=== PATIENT | female | born 1940 | race Caucasian/White ===

== ENCOUNTER 2018-12-09 20:07 | Inpatient (IN) | payer MEDICARE ==
[~2018-12-09 20:07] MED LIST: ISOVUE-370 76%-LOCM 1 ML ONE
--- NOTE | 2018-12-09 22:42 | CT ---
CT ANGIOGRAM THORAX WITH IV CONTRAST AND 3D RECONSTRUCTIONS: 12/09/2018 HISTORY: Elevated D-dimer. COPD exacerbation. Patient diagnosed with influenza A. Diarrhea. COMPARISON: None available. FINDINGS: There are no filling defects seen in the pulmonary arteries to suggest a pulmonary embolus. Vascular calcifications are seen in the thoracic aorta, as well as involving the coronary arteries. There is also irregular atherosclerotic plaque seen circumferentially in the abdominal aorta. There is no evidence of a thoracic aortic aneurysm or dissection seen. There is prominent atherosclerotic plaque seen at the origin of the great vessels, with a question of moderate to severe narrowing at the origin of the left subclavian artery, although there is motion a rtifact, limiting adequate evaluation in this region. Mildly prominent hilar lymph nodes are seen bilaterally, which are nonspecific. There is an enlarged pretracheal lymph node noted, which measures 1.2 cm in short axis dimension, with a mildly prominent prevascular space lymph node, although this measures 0.9 cm in short axis dimension, which is not en larged by CT size criteria. There is a very tiny pericardial effusion versus pericardial thickening noted. There are emphysematous changes seen throughout the lungs bilaterally. There is a noncalcified pulmonary nodule seen in the right upper lobe, measuring 5 mm (image 54 serie s 3). There is a small, pleural-based, nodular density at the right lung base, which measures approx imately 5 mm as well. There is an irregular, patchy, parenchymal density seen within the right lower lobe (image 77, series 3), which may represent a focal area of pneumonitis or scarring, but a develo ping neoplastic process cannot be entirely excluded. Follow-up evaluation is recommended. This nodu lar area of parenchymal density measures approximately 9 mm. There is a tiny, pleural-based, nodular density in the region of the minor fissure, likely related to nodular pleural thickening. No discrete pulmonary nodule or mass is seen on the left. There is no pleural effusion identified. The visualized upper abdomen has a normal CT appearance, aside from atherosclerotic vascular calcific ations and plaque in the visualized proximal abdominal aorta. IMPRESSION: 1. Irregular parenchymal density, measuring approximately 9 mm, in the right lower lobe. This could be related to a focal area of scarring, but a developing area of pneumonitis is a possibility. Foll ow-up to resolution is recommended. An additional tiny pulmonary nodule is seen in the right upper l obe, with a nodular, pleural-based density at the right lung base. Follow-up examination in three to four months is recommended, to ensure resolution of the irregular parenchymal nodular density in the right lower lobe. 2. Atherosclerotic calcifications and plaque within the thoracic aorta, without aneurysmal dilatatio n or dissection seen. There is a question of narrowing involving the origin of the left subclavian a rtery, although there is motion artifact, limiting adequate evaluation. 3. Nonspecific mediastinal and hilar lymphadenopathy. This can be re-evaluated on follow-up examina tion of the nodular density in the right lower lobe in three to four months. 4. Emphysematous changes within the lungs bilaterally. CODE T POS: SONIDO
[2018-12-09] MEDS ORDERED: Oseltamivir 75 MG CAP PO SCH (23:59)
[2018-12-10 02:40] VITALS: BMI 21.9
[2018-12-10] MEDS ORDERED: Acetaminophen 325 MG TAB PO PRN ×2 (02:44→06:56)
[2018-12-10] MEDS ORDERED: Ondansetron ODT 4 MG TAB SL PRN (02:44)
[2018-12-10] MEDS ORDERED: Ondansetron PF 4 MG/2 ML Vial IVP PRN (02:44)
[2018-12-10] MEDS ORDERED: Loratadine 10 MG TAB PO PRN (06:56)
[2018-12-10] MEDS ORDERED: Artificial Tears 18 DROP/0.9 ML EA EYE PRN (06:56)
[2018-12-10] MEDS ORDERED: Calcium Carbonate 500 MG ChewTAB PO PRN (06:56)
[2018-12-10] MEDS ORDERED: Diabetic Tussin 200 MG/10 ML UDCUP PO PRN (06:56)
[2018-12-10] MEDS ORDERED: Senokot S 8.6-50 MG TAB PO PRN (06:56)
[2018-12-10] MEDS ORDERED: hydrALAZINE 20 MG/ML VIAL SLOW IVP PRN (06:56)
[2018-12-10] MEDS ORDERED: Metoclopramide HCl 10 MG TAB PO PRN (06:56)
[2018-12-10] MEDS ORDERED: Loperamide HCl 2 MG CAP PO PRN (06:56)
[2018-12-10] MEDS ORDERED: Eucerin (Mineral Oil/Petrolatum,White) 30 gm Jar TOP PRN (06:56)
[2018-12-10] MEDS ORDERED: Cepastat Lozenges 1 LOZ PO PRN (06:56)
[2018-12-10] MEDS ORDERED: Sodium Chloride 0.65% Nasal 44 ML BOT EA NARE PRN (06:56)
[2018-12-10] MEDS ORDERED: Bisacodyl 10 MG SUPP PR PRN (06:56)
[2018-12-10] MEDS: Enoxaparin Sodium 40 MG/0.4 ML SYRINGE SC SCH (07:34)
[2018-12-10] MEDS: Saccharomyces boulardii 250 MG CAP PO SCH (07:35)
[2018-12-10] MEDS: guaiFENesin ER 600 MG TAB PO SCH ×2 (07:35→20:56)
[2018-12-10] MEDS: Oseltamivir 75 MG CAP PO SCH ×2 (07:46→20:57)
[2018-12-10] MEDS ORDERED: Prevnar 13-Val Conj/PF 0.5 ML SYRINGE IM ONE (09:00)
--- NOTE | 2018-12-10 10:26 | HP ---
PRIMARY CARE PHYSICIAN: Hilary Saleh MD REASON FOR ADMISSION: Influenza A, bronchitis with COPD exacerbation. HISTORY OF PRESENT ILLNESS: An 78-year-old female, who has underlying history of COPD and ongoing tobacco abuse disorder, who presented to [facility] yesterday with complaint of increasing shortness of breath, cough productive of yellowish white sputum. She reports that for last 2 days, she was experiencing upper respiratory symptoms that was gradually gotten worse and her shortness of breath started getting worse. Subsequently, she was trying her home medication without any improvement. Her condition deteriorated in next day or 2 and that is why she decided to go to emergency room. She was also having fever and chills. She denies any hemoptysis. The patient has oxygen and she is using oxygen during nighttime. The patient is still smoking. The patient was febrile with a temperature 101.2 and tachycardic at [facility]. She had CT angiography, which was negative for pulmonary embolism. The patient's chest x-ray was also negative for any acute process. The patient denies any UTI symptoms. She denies any constipation, diarrhea, melena, or hematochezia. EMERGENCY ROOM COURSE: At [facility], the patient was given IV fluid, Lovenox 1 mg/kg, Tamiflu, Solu-Medrol 125 mg, Rocephin 1 g, Tylenol, DuoNeb therapy, and albuterol nebulization, even after all this treatment, the patient did not improve. PAST MEDICAL HISTORY: COPD, tobacco abuse disorder, hypertension, CAD, history of diverticulitis, history of CVA, osteoarthritis, recurrent urinary tract infection, migraine headache, and medication noncompliance. PAST PSYCHIATRIC HISTORY: Anxiety and depression. REVIEW OF SYSTEMS: CONSTITUTIONAL: Negative for weight loss or gain, ability to conduct usual activities. SKIN: Negative for rash, itching. EYES: Negative for double vision, pain. ENT/MOUTH: Negative for nose bleeding, neck stiffness, pain, tenderness. CARDIOVASCULAR: Negative for palpitations, dyspnea on exertion, orthopnea. RESPIRATORY: Negative for shortness of breath, wheezing, cough, hemoptysis, fever or night sweats. GASTROINTESTINAL: Negative for poor appetite, abdominal pain, heartburn, nausea, vomiting, constipation, or diarrhea. GENITOURINARY: Negative for urgency, frequency, dysuria, nocturia. MUSCULOSKELETAL: Negative for pain, swelling. NEUROLOGIC/PSYCHIATRIC: Negative for anxiety, depression. ALLERGY/IMMUNOLOGIC: Negative for skin rash, bleeding tendency. Please see my HPI for pertinent positive and negative. All other review of systems reviewed and negative except as mentioned in HPI. PAST SURGICAL HISTORY: Tonsillectomy, tubal ligation, and cholecystectomy. SOCIAL HISTORY: The patient lives at home with family. She smokes about 1 pack per day. She denies any alcohol abuse. She denies any other illicit drug abuse. FAMILY HISTORY: Positive for hypertension among several family members. Father from brain cancer. ALLERGIES: CODEINE PHOSPHATE, DILANTIN, HYDROCODONE, DIAZEPAM, KEFLEX, AND TICLOPIDINE. CURRENT HOME MEDICATION: 1. DuoNeb q.6 hourly. 2. Amlodipine 5 mg daily. 3. Aspirin 81 mg daily. 4. Pulmicort nebulization b.i.d. 5. Dulera 2 puff inhalation b.i.d. 6. Protonix 40 mg daily. PHYSICAL EXAMINATION: VITAL SIGNS: Currently; blood pressure 133/67, pulse 94, respiratory rate 21, temperature 98.9, and saturation 96% on room air. Weight 58.1 kg. [facility], temperature 101.2 and pulse was 108. GENERAL: The patient is currently alert, awake, no obvious acute distress. HEENT: Head, normocephalic and atraumatic. Eyes, pupils round and reactive to light. Extraocular muscle intact. ENT, oropharynx within normal limits. Moist mucous membranes. No oral lesion. No pharyngeal erythema. No exudate. NECK: Supple. No JVD. No thyromegaly. No carotid bruit. LUNGS: Bilateral and expiratory wheezing heard. Few scattered rales noted. No accessory muscles of respiration in use. CARDIAC: S1 and S2. Regular. No murmur. No gallop. No rub. ABDOMEN: Soft. Bowel sounds present. Nontender and nondistended. No organomegaly. No mass. No suprapubic tenderness. BACK: Unremarkable. No CVA tenderness. EXTREMITIES: Upper extremities, passive movement of all joints are normal. Lower extremities, no edema. Good distal pulsation. SKIN: No skin rash. HEMATOLOGICAL SYSTEM: No lymphadenopathy. PSYCHIATRIC: Normal affect. NEUROLOGIC: Nonfocal examination. SIGNIFICANT LABORATORY DATA: CBC; WBC 9.3, hemoglobin 13.3, and platelet 136 with left shift. D-dimer 1.0. BMP; sodium 138, potassium 3.7, chloride 103, carbon dioxide 24, anion gap 15, BUN 12, creatinine 1.01, glucose 149, calcium 9.7, and lactic acid 2.4. LFT; AST 16, ALT 12, alkaline phosphatase 92, and albumin 4.3. CK-MB 0.8, troponin 0.035, and CK 47. Urinalysis unremarkable. Chest x-ray based on my review, no acute cardiopulmonary process. CT angiography based on my review, no evidence of pulmonary embolism, 9 mm right lower lobe parenchymal density, atherosclerotic calcification, and nonspecific lymphadenopathy. EKG showing sinus rhythm. ASSESSMENT AND PLAN: 1. Influenza A positive. The patient will be treated with Tamiflu 75 mg p.o. b.i.d. 2. Acute bronchitis/early pneumonia secondary to influenza A, associated bacterial infection is likely. She will be given levofloxacin 750 mg IV daily and Mucinex 600 mg twice daily. 3. Chronic obstructive pulmonary disease exacerbation. She will be treated with Solu-Medrol 40 mg IV q.6 hourly, DuoNeb q.4 hourly, Dulera 2 puff inhalation b.i.d. along with empiric antibiotic therapy with Levaquin. 4. Tobacco abuse disorder. Smoking cessation counseling given. Healthy lifestyle measure discussed with the patient. We will offer nicotine patch if needed while in the hospital. 5. Hypertension. Currently, blood pressure is on marginal side, so once blood pressure going up, then we will resume amlodipine 10 mg daily. 6. Gastroesophageal reflux disease. We will continue Protonix 40 mg p.o. daily. 7. Anxiety and depression. Currently, stable without any treatment. 8. Lactic acidosis due to sepsis. We will repeat lactic acid level tomorrow. 9. Elevated troponin, likely due to demand ischemia. We will do serial cardiac enzyme x3. The patient does not have any angina. 10. Deep venous thrombosis prophylaxis. Lovenox 40 mg subcu daily. 11. Gastrointestinal prophylaxis. Protonix 40 mg p.o. daily. 12. Code status. The patient is full code. The patient is making her decision by herself. DISPOSITION PLAN: Based on clinical course, we are expecting the patient's stay in hospital more than 2 midnights. While in hospital, the patient will need droplet precaution for her influenza A. I have spoke with the patient's family member and updated about the patient and plan of care as well. Job ID: [id number]
[2018-12-10] MEDS: Mometasone/Formoterol 120 PUFF INHALER INH SCH (19:24)
[2018-12-11] MEDS: Zolpidem Tartrate 5 MG TAB PO PRN ×2 (00:28→21:01)
[2018-12-11 06:34] LABS: #Lymphocytes 0.4 thou/uL (1.20-3.40); #Monocytes 0.3 thou/uL (0.11-0.59); #Neutrophils 5.7 thou/uL (1.40-6.50); %Basophils 0.2 % (0.0-1.0); %Eosinophils 0.6 % (0.0-10.0); %Lymphocytes 6.2 % (21.0-51.0); %Monocytes 3.9 % (0.0-10.0); %Neutrophils 89.2 % (42.0-75.0); Hemoglobin 11.5 g/dL (12.0-16.0); Mean Corpuscular HGB CONC 32.5 g/dL (32.0-36.0); Mean Corpuscular Hemoglobin 30.4 pg (27.0-31.0); Mean Corpuscular Volume 93.6 fL (78.0-98.0); Mean Platelet Volume 8.7 fL (7.4-10.4); Platelet Count 132 thou/uL (130-400); RBC Distribution Width 12.1 % (11.5-14.5); Red Blood Cell (RBC) Count 3.79 mill/uL (4.20-5.40); White Blood Cell (WBC) Count 6.4 thou/uL (4.8-10.8)
[2018-12-11 06:52] LABS: Lactic Acid 3.1 mmol/L (0.5-2.2)
[2018-12-11 06:55] LABS: ALT (SGPT) 10 U/L (8-55); AST (SGOT) 17 U/L (5-34); Albumin 3.6 g/dL (3.4-4.8); Alkaline Phosphatase 68 U/L (40-150); Anion Gap 16 mmol/L (10-20); BUN (Urea Nitrogen) 12 mg/dL (9.8-20.1); Bilirubin, Total Less than 0.2 mg/dL (0.2-1.2); Calc. Creatinine Clearance 49 mL/min (70-130); Calcium 9.4 mg/dL (7.8-10.44); Carbon Dioxide 19 mmol/L (23-31); Chloride 108 mmol/L (98-107); Estimated GFR-MDRD 64; Globulin 2.7 g/dL (2.4-3.5); Glucose 144 mg/dL (83-110); Potassium 3.1 mmol/L (3.5-5.1); Protein, Total 6.3 g/dL (6.0-8.3); Sodium 140 mmol/L (136-145)
[2018-12-11] MEDS: Mometasone/Formoterol 120 PUFF INHALER INH SCH ×2 (08:12→18:20)
[2018-12-11] MEDS ORDERED: Potassium Chloride 20 MEQ TAB PO SCH (08:15)
[2018-12-11] MEDS: guaiFENesin ER 600 MG TAB PO SCH ×2 (08:16→20:56)
[2018-12-11] MEDS: Saccharomyces boulardii 250 MG CAP PO SCH (08:16)
[2018-12-11] MEDS: Nicotine 21 MG PATCH TD SCH (08:16)
[2018-12-11] MEDS: Enoxaparin Sodium 40 MG/0.4 ML SYRINGE SC SCH (08:17)
[2018-12-11] MEDS: Oseltamivir 75 MG CAP PO SCH ×2 (08:17→20:56)
[2018-12-11 08:24] LABS: Magnesium 2.2 mg/dL (1.6-2.6)
[2018-12-11 08:52] LABS: Phosphorus 1.9 mg/dL (2.3-4.7)
--- NOTE | 2018-12-11 10:54 | PDOC.PN ---
- Subjective Encounter Start Date: 12/11/18 Encounter Start Time: 09:00 -: old records requested/rev Patient seen and examined. No new complaints. No overnight events - Objective Resuscitation Status - Order Detail: 12/10/18 06:52 Resuscitation Status Routine Resuscitation Status: FULL: Full Resuscitation MAR Reviewed: Yes Vital Signs & Weight: Vital Signs (12 hours) Temp Pulse Resp BP Pulse Ox 12/11/18 10:24 87 20 96 12/11/18 08:10 75 18 97 12/11/18 07:09 98.4 F 75 20 119/68 97 12/11/18 04:46 98.1 F 75 20 134/65 97 12/11/18 00:00 98.6 F 85 20 95/60 92 L 12/10/18 23:05 93 L Weight Weight 129 lb 9.6 oz I&O: 12/10/18 12/11/18 12/12/18 06:59 06:59 06:59 Intake Total 1760 Balance 1760 Result Diagrams: 12/11/18 05:15 12/11/18 05:15 Phys Exam - Physical Examination Constitutional: NAD HEENT: PERRLA, moist MMs, sclera anicteric Neck: no JVD, supple Respiratory: no rales few wheeze+ Cardiovascular: RRR, no significant murmur, no rub Gastrointestinal: soft, non-tender, no distention, positive bowel sounds Musculoskeletal: no edema, pulses present Neurological: non-focal, normal sensation, moves all 4 limbs Lymphatic: no nodes Psychiatric: normal affect, A&O x 3 Skin: no rash, normal turgor Dx/Plan (1) COPD exacerbation Code(s): J44.1 - CHRONIC OBSTRUCTIVE PULMONARY DISEASE W (ACUTE) EXACERBATION Status: Acute (2) Lactic acidosis Code(s): E87.2 - ACIDOSIS Status: Acute (3) Hypokalemia Code(s): E87.6 - HYPOKALEMIA Status: Acute (4) Hypophosphatemia Code(s): E83.39 - OTHER DISORDERS OF PHOSPHORUS METABOLISM Status: Acute (5) Tobacco use Code(s): Z72.0 - TOBACCO USE Status: Chronic (6) Hypertension Code(s): I10 - ESSENTIAL (PRIMARY) HYPERTENSION Status: Chronic (7) Anemia, normocytic normochromic Code(s): D64.9 - ANEMIA, UNSPECIFIED Status: Chronic (8) Chronic respiratory failure with hypoxia, on home oxygen therapy Code(s): J96.11 - CHRONIC RESPIRATORY FAILURE WITH HYPOXIA; Z99.81 - DEPENDENCE ON SUPPLEMENTAL OXYGEN Status: Chronic - Plan cont current plan of care, continue antibiotics, respiratory therapy * replace potassium chloride and potassium phosphate * reduce solumedrol * medication reviewed as below * symptomatic treatment * continue respiratory therapy * repeat labs tomorrow * continue levaquin. * counselled to avoid smoking Review of Systems - Review of Systems ENT: negative: Ear Pain, Ear Discharge, Nose Pain, Nose Discharge, Nose Congestion, Mouth Pain, Mouth Swelling, Throat Pain, Throat Swelling, Other Respiratory: Cough, Shortness of Breath, Wheezing. negative: Dry, Hemoptysis, SOB with Excertion, Pleuritic Pain, Sputum Cardiovascular: negative: chest pain, palpitations, orthopnea, paroxysmal nocturnal dyspnea, edema, light headedness, other Gastrointestinal: negative: Nausea, Vomiting, Abdominal Pain, Diarrhea, Constipation, Melena, Hematochezia, Other Genitourinary: negative: Dysuria, Frequency, Incontinence, Hematuria, Retention , Other Musculoskeletal: negative: Neck Pain, Shoulder Pain, Arm Pain, Back Pain, Hand Pain, Leg Pain, Foot Pain, Other Skin: negative: Rash, Lesions, Emmanuel, Bruising, Other - Medications/Allergies Allergies/Adverse Reactions: Allergies Allergy/AdvReac Type Severity Reaction Status Date / Time adhesive tape Allergy Rash Verified 01/17/18 13:41 cephalexin monohydrate Allergy Verified 08/27/15 12:06 [From Keflex] codeine Allergy Verified 08/27/15 12:06 iodine Allergy Verified 08/27/15 12:06 Latex, Natural Rubber Allergy Unverified 12/09/18 23:47 phenytoin sodium Allergy Verified 01/17/18 13:41 [From Dilantin] rofecoxib [From Vioxx] Allergy Verified 08/27/15 12:06 ticlopidine [From Ticlid] Allergy Unverified 12/09/18 23:47 tramadol Allergy Verified 08/27/15 12:06 diazepam [From Valium] AdvReac Verified 01/17/18 13:41 hydrocodone bitartrate AdvReac Verified 01/17/18 13:41 [From Vicodin] phenytoin sodium extended AdvReac Verified 01/17/18 13:41 [From Dilantin] Medications: Current Medications Acetaminophen (Tylenol) 650 mg PO Q4H PRN PRN Reason: Headache/Fever/Mild Pain (1-3) Albuterol/Ipratropium (Duoneb) 3 ml NEB [id number] [facility] Last Admin: 12/11/18 10:24 Dose: 3 ml Artificial Tears (Tears Naturale) 2 drop EA EYE PRN PRN PRN Reason: Dry Eyes Aspirin (Aspirin Chewable) 81 mg PO DAILY [facility] Last Admin: 12/11/18 08:16 Dose: 81 mg Bisacodyl (Dulcolax) 10 mg [place] DAILYPRN PRN PRN Reason: Constipation Calcium Carbonate (Tums) 1,000 mg PO Q4H PRN PRN Reason: Heartburn or Indigestion Enoxaparin Sodium (Lovenox) 40 mg SC 0900 [facility] Last Admin: 12/11/18 08:17 Dose: 40 mg Guaifenesin (Mucinex) 600 mg PO Q12HR [facility] Last Admin: 12/11/18 08:16 Dose: 600 mg Guaifenesin (Robitussin Sf) 200 mg PO Q4H PRN PRN Reason: Cough Hydralazine HCl (Apresoline) 10 mg SLOW IVP Q4H PRN PRN Reason: SBP > 180 and HR < 70 Levofloxacin 750 mg/ Device 150 mls @ 100 mls/hr IVPB Q24HR [facility] Last Admin: 12/11/18 08:28 Dose: 150 mls Loperamide HCl (Imodium) 2 mg PO PRN PRN PRN Reason: Diarrhea/Loose Stools Last Admin: 12/10/18 10:30 Dose: 2 mg Loratadine (Claritin) 10 mg PO DAILYPRN PRN PRN Reason: Sinus Symptoms Methylprednisolone Sodium Succinate (Solu-Medrol) 40 mg IVP Q6HR [facility] Last Admin: 12/11/18 05:51 Dose: 40 mg Metoclopramide HCl (Reglan) 5 mg PO Q4H PRN PRN Reason: Nausea Mineral Oil/White Petrolatum (Eucerin Cream) 0 gm TOP BIDPRN PRN PRN Reason: Dry Skin Mometasone Furoate/Formoterol Fumar (Dulera 200 Mcg/5 Mcg Inhaler) 2 puff INH BID-RT [facility] Last Admin: 12/11/18 08:12 Dose: 2 puff Nicotine (Nicoderm Patch) 21 mg TD DAILY [facility] Last Admin: 12/11/18 08:16 Dose: 21 mg Oseltamivir Phosphate (Tamiflu) 75 mg PO BID [facility] Stop: 12/14/18 21:01 Last Admin: 12/11/18 08:17 Dose: 75 mg Pantoprazole Sodium (Protonix) 40 mg PO DAILY [facility] Last Admin: 12/11/18 08:16 Dose: 40 mg Saccharomyces Boulardii (Florastor) 250 mg PO DAILY [facility] Last Admin: 12/11/18 08:16 Dose: 250 mg Senna/Docusate Sodium (Senokot S) 2 tab PO BID PRN PRN Reason: Constipation Sodium Chloride ([place] Nasal [place] 0.65%) 0 ml EA NARE QIDPRN PRN PRN Reason: Nasal Congestion Sodium Chloride (Flush - Normal Saline) 10 ml IVF Q12HR [facility] Last Admin: 12/11/18 08:19 Dose: 10 ml Sodium Chloride (Flush - Normal Saline) 10 ml IVF PRN PRN PRN Reason: Saline Flush Throat Lozenges (Cepastat Lozenges) 1 chiara PO Q2H PRN PRN Reason: Sore Throat Zolpidem Tartrate (Ambien) 5 mg PO HSPRN PRN PRN Reason: Insomnia Last Admin: 12/11/18 00:28 Dose: 5 mg
[2018-12-11] MEDS ORDERED: Potassium Phosphate 15 MMOL in Sodium Chloride 0.9% 250 ML 250 ML IVPB SCH (11:00)
[2018-12-12] MEDS: Zolpidem Tartrate 5 MG TAB PO PRN (00:08)
[2018-12-12] MEDS: Mometasone/Formoterol 120 PUFF INHALER INH SCH ×2 (06:55→19:14)
[2018-12-12 08:00] LABS: Lactic Acid 2.8 mmol/L (0.5-2.2)
[2018-12-12 08:03] LABS: Anion Gap 14 mmol/L (10-20); BUN (Urea Nitrogen) 12 mg/dL (9.8-20.1); Calc. Creatinine Clearance 56 mL/min (70-130); Calcium 9.2 mg/dL (7.8-10.44); Carbon Dioxide 24 mmol/L (23-31); Chloride 106 mmol/L (98-107); Estimated GFR-MDRD 74; Glucose 135 mg/dL (83-110); Potassium 3.8 mmol/L (3.5-5.1); Sodium 140 mmol/L (136-145)
[2018-12-12 08:26] LABS: Phosphorus 1.8 mg/dL (2.3-4.7)
[2018-12-12] MEDS: guaiFENesin ER 600 MG TAB PO SCH ×2 (09:17→20:27)
[2018-12-12] MEDS: Saccharomyces boulardii 250 MG CAP PO SCH (09:17)
[2018-12-12] MEDS: Enoxaparin Sodium 40 MG/0.4 ML SYRINGE SC SCH (09:17)
[2018-12-12] MEDS: Nicotine 21 MG PATCH TD SCH (09:17)
[2018-12-12] MEDS: Oseltamivir 75 MG CAP PO SCH ×2 (09:17→20:26)
--- NOTE | 2018-12-12 12:31 | PDOC.PN ---
- Subjective Encounter Start Date: 12/12/18 Encounter Start Time: 09:00 today she is not feeling good, she has cough, has dyspnea, feels weak - Objective Resuscitation Status - Order Detail: 12/10/18 06:52 Resuscitation Status Routine Resuscitation Status: FULL: Full Resuscitation MAR Reviewed: Yes Vital Signs & Weight: Vital Signs (12 hours) Temp Pulse Resp BP BP Pulse Ox 12/12/18 11:56 97.9 F 87 24 H 97/59 L 94 L 12/12/18 11:17 83 22 H 95 12/12/18 08:00 94 L 12/12/18 07:10 98.3 F 87 20 136/81 94 L 12/12/18 06:53 87 20 94 L 12/12/18 04:00 98.9 F 87 18 124/76 94 L 12/12/18 02:27 86 20 94 L Weight Weight 129 lb 9.6 oz I&O: 12/11/18 12/12/18 12/13/18 06:59 06:59 06:59 Intake Total 1760 1800.5 Balance 1760 1800.5 Result Diagrams: 12/11/18 05:15 12/12/18 07:04 Phys Exam - Physical Examination Constitutional: NAD HEENT: PERRLA, moist MMs, sclera anicteric Neck: no JVD, supple Respiratory: no rales, wheezing present Cardiovascular: RRR, no significant murmur, no rub Gastrointestinal: soft, non-tender, no distention, positive bowel sounds Musculoskeletal: no edema, pulses present Neurological: non-focal, normal sensation Lymphatic: no nodes Psychiatric: normal affect, A&O x 3 Skin: no rash, normal turgor Dx/Plan (1) COPD exacerbation Code(s): J44.1 - CHRONIC OBSTRUCTIVE PULMONARY DISEASE W (ACUTE) EXACERBATION Status: Acute (2) Lactic acidosis Code(s): E87.2 - ACIDOSIS Status: Acute (3) Hypokalemia Code(s): E87.6 - HYPOKALEMIA Status: Acute (4) Hypophosphatemia Code(s): E83.39 - OTHER DISORDERS OF PHOSPHORUS METABOLISM Status: Acute (5) Tobacco use Code(s): Z72.0 - TOBACCO USE Status: Chronic (6) Hypertension Code(s): I10 - ESSENTIAL (PRIMARY) HYPERTENSION Status: Chronic (7) Anemia, normocytic normochromic Code(s): D64.9 - ANEMIA, UNSPECIFIED Status: Chronic (8) Chronic respiratory failure with hypoxia, on home oxygen therapy Code(s): J96.11 - CHRONIC RESPIRATORY FAILURE WITH HYPOXIA; Z99.81 - DEPENDENCE ON SUPPLEMENTAL OXYGEN Status: Chronic (9) Influenza A Code(s): J10.1 - FLU DUE TO OTH IDENT INFLUENZA VIRUS W OTH RESP MANIFEST Status: Acute - Plan cont current plan of care, continue antibiotics, respiratory therapy * medication reviewed as below * symptomatic treatment * continue solumedrol, levaquin, duoneb, mucinex, tamiflu * replace phosphorus * monitor in hospital. Review of Systems - Review of Systems Constitutional: weakness. negative: fever, chills, sweats, malaise, other Respiratory: Cough, Shortness of Breath, Wheezing. negative: Dry, Hemoptysis, SOB with Excertion, Pleuritic Pain, Sputum Cardiovascular: negative: chest pain, palpitations, orthopnea, paroxysmal nocturnal dyspnea, edema, light headedness, other Gastrointestinal: negative: Nausea, Vomiting, Abdominal Pain, Diarrhea, Constipation, Melena, Hematochezia, Other Genitourinary: negative: Dysuria, Frequency, Incontinence, Hematuria, Retention , Other Musculoskeletal: negative: Neck Pain, Shoulder Pain, Arm Pain, Back Pain, Hand Pain, Leg Pain, Foot Pain, Other Skin: negative: Rash, Lesions, Emmanuel, Bruising, Other - Medications/Allergies Allergies/Adverse Reactions: Allergies Allergy/AdvReac Type Severity Reaction Status Date / Time Latex, Natural Rubber Allergy Mild Verified 12/11/18 17:42 adhesive tape Allergy Rash Verified 01/17/18 13:41 cephalexin monohydrate Allergy Verified 08/27/15 12:06 [From Keflex] codeine Allergy Verified 08/27/15 12:06 iodine Allergy Verified 08/27/15 12:06 phenytoin sodium Allergy Verified 01/17/18 13:41 [From Dilantin] rofecoxib [From Vioxx] Allergy Verified 08/27/15 12:06 ticlopidine [From Ticlid] Allergy Verified 12/11/18 17:41 tramadol Allergy Verified 08/27/15 12:06 diazepam [From Valium] AdvReac Verified 01/17/18 13:41 hydrocodone bitartrate AdvReac Verified 01/17/18 13:41 [From Vicodin] phenytoin sodium extended AdvReac Verified 01/17/18 13:41 [From Dilantin] Medications: Current Medications Acetaminophen (Tylenol) 650 mg PO Q4H PRN PRN Reason: Headache/Fever/Mild Pain (1-3) Albuterol/Ipratropium (Duoneb) 3 ml NEB [id number] [facility] Last Admin: 12/12/18 11:17 Dose: 3 ml Artificial Tears (Tears Naturale) 2 drop EA EYE PRN PRN PRN Reason: Dry Eyes Aspirin (Aspirin Chewable) 81 mg PO DAILY [facility] Last Admin: 12/12/18 09:17 Dose: 81 mg Bisacodyl (Dulcolax) 10 mg [place] DAILYPRN PRN PRN Reason: Constipation Calcium Carbonate (Tums) 1,000 mg PO Q4H PRN PRN Reason: Heartburn or Indigestion Enoxaparin Sodium (Lovenox) 40 mg SC 0900 [facility] Last Admin: 12/12/18 09:17 Dose: 40 mg Guaifenesin (Mucinex) 600 mg PO Q12HR [facility] Last Admin: 12/12/18 09:17 Dose: 600 mg Guaifenesin (Robitussin Sf) 200 mg PO Q4H PRN PRN Reason: Cough Hydralazine HCl (Apresoline) 10 mg SLOW IVP Q4H PRN PRN Reason: SBP > 180 and HR < 70 Levofloxacin 750 mg/ Device 150 mls @ 100 mls/hr IVPB Q24HR [facility] Last Admin: 12/12/18 09:16 Dose: 150 mls Loperamide HCl (Imodium) 2 mg PO PRN PRN PRN Reason: Diarrhea/Loose Stools Last Admin: 12/10/18 10:30 Dose: 2 mg Loratadine (Claritin) 10 mg PO DAILYPRN PRN PRN Reason: Sinus Symptoms Methylprednisolone Sodium Succinate (Solu-Medrol) 20 mg IVP Q6HR [facility] Last Admin: 12/12/18 12:27 Dose: 20 mg Metoclopramide HCl (Reglan) 5 mg PO Q4H PRN PRN Reason: Nausea Mineral Oil/White Petrolatum (Eucerin Cream) 0 gm TOP BIDPRN PRN PRN Reason: Dry Skin Miscellaneous Medication (Phos-Nak) 1 pkt PO BID [facility] Mometasone Furoate/Formoterol Fumar (Dulera 200 Mcg/5 Mcg Inhaler) 2 puff INH BID-RT [facility] Last Admin: 12/12/18 06:55 Dose: 2 puff Nicotine (Nicoderm Patch) 21 mg TD DAILY [facility] Last Admin: 12/12/18 09:17 Dose: 21 mg Oseltamivir Phosphate (Tamiflu) 75 mg PO BID [facility] Stop: 12/14/18 21:01 Last Admin: 12/12/18 09:17 Dose: 75 mg Pantoprazole Sodium (Protonix) 40 mg PO DAILY [facility] Last Admin: 12/12/18 09:17 Dose: 40 mg Saccharomyces Boulardii (Florastor) 250 mg PO DAILY [facility] Last Admin: 12/12/18 09:17 Dose: 250 mg Senna/Docusate Sodium (Senokot S) 2 tab PO BID PRN PRN Reason: Constipation Sodium Chloride ([place] Nasal [place] 0.65%) 0 ml EA NARE QIDPRN PRN PRN Reason: Nasal Congestion Sodium Chloride (Flush - Normal Saline) 10 ml IVF Q12HR [facility] Last Admin: 12/12/18 09:16 Dose: 10 ml Sodium Chloride (Flush - Normal Saline) 10 ml IVF PRN PRN PRN Reason: Saline Flush Last Admin: 12/12/18 05:33 Dose: 10 ml Throat Lozenges (Cepastat Lozenges) 1 chiara PO Q2H PRN PRN Reason: Sore Throat Zolpidem Tartrate (Ambien) 5 mg PO HSPRN PRN PRN Reason: Insomnia Last Admin: 12/12/18 00:08 Dose: 5 mg
[2018-12-12] MEDS: ALPRAZolam 0.25 MG TAB PO PRN (18:30)
[2018-12-13] MEDS: Zolpidem Tartrate 5 MG TAB PO PRN (00:23)
[2018-12-13 06:34] LABS: Hemoglobin 12.2 g/dL (12.0-16.0); Mean Corpuscular HGB CONC 33.8 g/dL (32.0-36.0); Mean Corpuscular Hemoglobin 31.3 pg (27.0-31.0); Mean Corpuscular Volume 92.6 fL (78.0-98.0); Mean Platelet Volume 8.6 fL (7.4-10.4); Platelet Count 142 thou/uL (130-400); RBC Distribution Width 12.3 % (11.5-14.5); Red Blood Cell (RBC) Count 3.91 mill/uL (4.20-5.40); White Blood Cell (WBC) Count 5.2 thou/uL (4.8-10.8)
[2018-12-13 06:58] LABS: Lactic Acid 3.1 mmol/L (0.5-2.2)
[2018-12-13] MEDS: Mometasone/Formoterol 120 PUFF INHALER INH SCH ×2 (07:09→18:31)
[2018-12-13 07:20] LABS: Anion Gap 14 mmol/L (10-20); BUN (Urea Nitrogen) 16 mg/dL (9.8-20.1); Calc. Creatinine Clearance 48 mL/min (70-130); Calcium 9.8 mg/dL (7.8-10.44); Carbon Dioxide 27 mmol/L (23-31); Chloride 102 mmol/L (98-107); Estimated GFR-MDRD 63; Glucose 134 mg/dL (83-110); Phosphorus 2.7 mg/dL (2.3-4.7); Potassium 3.8 mmol/L (3.5-5.1); Sodium 139 mmol/L (136-145)
[2018-12-13 08:27] LABS: Band 3 % (5-11); Eosinophils 1 % (0-10); Lymphocytes 15 % (21-51); MDiff Complete? YES; Neutrophil 80 % (42-75); RBC Morphology Normal; Reactive Lymphocytes 1 % (0-10)
[2018-12-13] MEDS: Enoxaparin Sodium 40 MG/0.4 ML SYRINGE SC SCH (09:17)
[2018-12-13] MEDS: Nicotine 21 MG PATCH TD SCH (09:17)
[2018-12-13] MEDS: Saccharomyces boulardii 250 MG CAP PO SCH (09:17)
[2018-12-13] MEDS: guaiFENesin ER 600 MG TAB PO SCH ×2 (09:18→21:37)
[2018-12-13] MEDS: Oseltamivir 75 MG CAP PO SCH ×2 (09:18→21:37)
--- NOTE | 2018-12-13 12:14 | PDOC.PN ---
- Subjective Encounter Start Date: 12/13/18 Encounter Start Time: 08:25 Patient seen and examined. No new complaints. No overnight events - Objective Resuscitation Status - Order Detail: 12/10/18 06:52 Resuscitation Status Routine Resuscitation Status: FULL: Full Resuscitation MAR Reviewed: Yes Vital Signs & Weight: Vital Signs (12 hours) Temp Pulse Resp BP BP Pulse Ox 12/13/18 10:41 90 14 12/13/18 08:00 98.4 F 87 20 131/85 93 L 12/13/18 07:09 90 14 12/13/18 04:00 98.4 F 85 18 119/76 93 L 12/13/18 02:39 85 20 93 L Weight Weight 129 lb 9.6 oz I&O: 12/12/18 12/13/18 12/14/18 06:59 06:59 06:59 Intake Total 1800.5 511.0 Balance 1800.5 511.0 Result Diagrams: 12/13/18 05:27 12/13/18 05:27 Phys Exam - Physical Examination Constitutional: NAD HEENT: PERRLA, moist MMs, sclera anicteric Neck: no JVD, supple Respiratory: no rales few wheeze+ Cardiovascular: RRR, no significant murmur, no rub Gastrointestinal: soft, non-tender, no distention, positive bowel sounds Musculoskeletal: no edema, pulses present Neurological: non-focal, normal sensation, moves all 4 limbs Lymphatic: no nodes Psychiatric: normal affect, A&O x 3 Skin: no rash, normal turgor Dx/Plan (1) COPD exacerbation Code(s): J44.1 - CHRONIC OBSTRUCTIVE PULMONARY DISEASE W (ACUTE) EXACERBATION Status: Acute (2) Lactic acidosis Code(s): E87.2 - ACIDOSIS Status: Acute (3) Hypokalemia Code(s): E87.6 - HYPOKALEMIA Status: Acute (4) Hypophosphatemia Code(s): E83.39 - OTHER DISORDERS OF PHOSPHORUS METABOLISM Status: Acute (5) Tobacco use Code(s): Z72.0 - TOBACCO USE Status: Chronic (6) Hypertension Code(s): I10 - ESSENTIAL (PRIMARY) HYPERTENSION Status: Chronic (7) Anemia, normocytic normochromic Code(s): D64.9 - ANEMIA, UNSPECIFIED Status: Chronic (8) Chronic respiratory failure with hypoxia, on home oxygen therapy Code(s): J96.11 - CHRONIC RESPIRATORY FAILURE WITH HYPOXIA; Z99.81 - DEPENDENCE ON SUPPLEMENTAL OXYGEN Status: Chronic (9) Influenza A Code(s): J10.1 - FLU DUE TO OTH IDENT INFLUENZA VIRUS W OTH RESP MANIFEST Status: Acute - Plan cont current plan of care, continue antibiotics, respiratory therapy * she is improving, but i think she will benefit with one more day in hospital with current optimum therapy * medication reviewed as below * symptomatic treatment. Review of Systems - Review of Systems Constitutional: weakness. negative: fever, chills, sweats, malaise, other Respiratory: Cough, Shortness of Breath. negative: Dry, Hemoptysis, SOB with Excertion, Pleuritic Pain, Sputum, Wheezing Cardiovascular: negative: chest pain, palpitations, orthopnea, paroxysmal nocturnal dyspnea, edema, light headedness, other Gastrointestinal: negative: Nausea, Vomiting, Abdominal Pain, Diarrhea, Constipation, Melena, Hematochezia, Other Genitourinary: negative: Dysuria, Frequency, Incontinence, Hematuria, Retention , Other Musculoskeletal: negative: Neck Pain, Shoulder Pain, Arm Pain, Back Pain, Hand Pain, Leg Pain, Foot Pain, Other - Medications/Allergies Allergies/Adverse Reactions: Allergies Allergy/AdvReac Type Severity Reaction Status Date / Time Latex, Natural Rubber Allergy Mild Verified 12/11/18 17:42 adhesive tape Allergy Rash Verified 01/17/18 13:41 cephalexin monohydrate Allergy Verified 08/27/15 12:06 [From Keflex] codeine Allergy Verified 08/27/15 12:06 iodine Allergy Verified 08/27/15 12:06 phenytoin sodium Allergy Verified 01/17/18 13:41 [From Dilantin] rofecoxib [From Vioxx] Allergy Verified 08/27/15 12:06 ticlopidine [From Ticlid] Allergy Verified 12/11/18 17:41 tramadol Allergy Verified 08/27/15 12:06 diazepam [From Valium] AdvReac Verified 01/17/18 13:41 hydrocodone bitartrate AdvReac Verified 01/17/18 13:41 [From Vicodin] phenytoin sodium extended AdvReac Verified 01/17/18 13:41 [From Dilantin] Medications: Current Medications Acetaminophen (Tylenol) 650 mg PO Q4H PRN PRN Reason: Headache/Fever/Mild Pain (1-3) Albuterol/Ipratropium (Duoneb) 3 ml NEB [id number] [facility] Last Admin: 12/13/18 10:41 Dose: 3 ml Alprazolam (Xanax) 0.25 mg PO TID PRN PRN Reason: Anxiety Last Admin: 12/12/18 18:30 Dose: 0.25 mg Artificial Tears (Tears Naturale) 2 drop EA EYE PRN PRN PRN Reason: Dry Eyes Aspirin (Aspirin Chewable) 81 mg PO DAILY [facility] Last Admin: 12/13/18 09:18 Dose: 81 mg Bisacodyl (Dulcolax) 10 mg [place] DAILYPRN PRN PRN Reason: Constipation Calcium Carbonate (Tums) 1,000 mg PO Q4H PRN PRN Reason: Heartburn or Indigestion Enoxaparin Sodium (Lovenox) 40 mg SC 0900 [facility] Last Admin: 12/13/18 09:17 Dose: 40 mg Guaifenesin (Mucinex) 600 mg PO Q12HR [facility] Last Admin: 12/13/18 09:18 Dose: 600 mg Guaifenesin (Robitussin Sf) 200 mg PO Q4H PRN PRN Reason: Cough Hydralazine HCl (Apresoline) 10 mg SLOW IVP Q4H PRN PRN Reason: SBP > 180 and HR < 70 Levofloxacin (Levaquin) 750 mg PO 0600 [facility] Last Admin: 12/13/18 05:12 Dose: 750 mg Loperamide HCl (Imodium) 2 mg PO PRN PRN PRN Reason: Diarrhea/Loose Stools Last Admin: 12/10/18 10:30 Dose: 2 mg Loratadine (Claritin) 10 mg PO DAILYPRN PRN PRN Reason: Sinus Symptoms Methylprednisolone Sodium Succinate (Solu-Medrol) 20 mg IVP Q6HR [facility] Last Admin: 12/13/18 05:12 Dose: 20 mg Metoclopramide HCl (Reglan) 5 mg PO Q4H PRN PRN Reason: Nausea Mineral Oil/White Petrolatum (Eucerin Cream) 0 gm TOP BIDPRN PRN PRN Reason: Dry Skin Miscellaneous Medication (Phos-Nak) 1 pkt PO BID [facility] Last Admin: 12/13/18 09:18 Dose: 1 pkt Mometasone Furoate/Formoterol Fumar (Dulera 200 Mcg/5 Mcg Inhaler) 2 puff INH BID-RT [facility] Last Admin: 12/13/18 07:09 Dose: 2 puff Nicotine (Nicoderm Patch) 21 mg TD DAILY [facility] Last Admin: 12/13/18 09:17 Dose: 21 mg Oseltamivir Phosphate (Tamiflu) 75 mg PO BID [facility] Stop: 12/14/18 21:01 Last Admin: 12/13/18 09:18 Dose: 75 mg Pantoprazole Sodium (Protonix) 40 mg PO DAILY [facility] Last Admin: 12/13/18 09:18 Dose: 40 mg Saccharomyces Boulardii (Florastor) 250 mg PO DAILY [facility] Last Admin: 12/13/18 09:17 Dose: 250 mg Senna/Docusate Sodium (Senokot S) 2 tab PO BID PRN PRN Reason: Constipation Sodium Chloride ([place] Nasal [facility] 0.65%) 0 ml EA NARE QIDPRN PRN PRN Reason: Nasal Congestion Sodium Chloride (Flush - Normal Saline) 10 ml IVF Q12HR [facility] Last Admin: 12/13/18 09:19 Dose: 10 ml Sodium Chloride (Flush - Normal Saline) 10 ml IVF PRN PRN PRN Reason: Saline Flush Last Admin: 12/13/18 05:13 Dose: 10 ml Throat Lozenges (Cepastat Lozenges) 1 chiara PO Q2H PRN PRN Reason: Sore Throat Zolpidem Tartrate (Ambien) 5 mg PO HSPRN PRN PRN Reason: Insomnia Last Admin: 12/13/18 00:23 Dose: 5 mg
[2018-12-13] MEDS: ALPRAZolam 0.25 MG TAB PO PRN (21:38)
[2018-12-14] MEDS: Mometasone/Formoterol 120 PUFF INHALER INH SCH (07:39)
[2018-12-14] MEDS: Enoxaparin Sodium 40 MG/0.4 ML SYRINGE SC SCH (09:14)
[2018-12-14] MEDS: Nicotine 21 MG PATCH TD SCH (09:14)
[2018-12-14] MEDS: Oseltamivir 75 MG CAP PO SCH (09:15)
[2018-12-14] MEDS: Saccharomyces boulardii 250 MG CAP PO SCH (09:15)
[2018-12-14] MEDS: guaiFENesin ER 600 MG TAB PO SCH (09:15)
--- NOTE | 2018-12-14 10:45 | DIS ---
DATE OF ADMISSION: 12/09/2018 DATE OF DISCHARGE: 12/14/2018 PRIMARY CARE PHYSICIAN: Dr. Saleh. DISCHARGE DISPOSITION: Home. PRIMARY DISCHARGE DIAGNOSES: Chronic obstructive pulmonary disease exacerbation, influenza A, hypokalemia, hypophosphatemia, and lactic acidosis. SECONDARY DISCHARGE DIAGNOSES: Tobacco abuse disorder; hypertension; chronic respiratory failure with hypoxia, on home oxygen therapy; normocytic normochromic anemia. PRIMARY PROCEDURE/OPERATION: None. RADIOLOGICAL INVESTIGATION: CT angio negative for PE. SIGNIFICANT LABORATORY DATA: WBC 5.2, hemoglobin 12.2, and platelet 142. Sodium 139, potassium 3.8, BUN 16, creatinine 0.86, calcium 9.8. Lactic acid 3.1, and phosphorus 2.7. DISCHARGE MEDICATIONS: 1. Xanax 0.25 mg p.o. at bedtime. 2. DuoNeb q.6 hourly. 3. Mucinex 600 mg p.o. b.i.d. 4. Amlodipine 5 mg daily. 5. Aspirin 81 mg daily. 6. Pulmicort nebulization b.i.d. 7. Levaquin 750 mg p.o. daily for 7 days. 8. Dulera 2 puff inhalation b.i.d. 9. Protonix 40 mg p.o. daily. 10. Prednisone 20 mg p.o. b.i.d. for 7 days. 11. Florastor 250 mg p.o. daily for 7 days. CONTRAINDICATIONS: None. CODE STATUS: Full code. INPATIENT PROCESSES CHEMICAL DESIGN ENGINEER: None. ALLERGIES: LATEX, NATURAL RUBBER, ADHESIVE, CEPHALEXIN, CODEINE. DISCHARGE PLAN: Posthospital, the patient is instructed to follow up with Dr. Saleh in one week. HOSPITAL COURSE: An 78-year-old female with above-mentioned medical problem, who was admitted by me. Please see my HPI for further details. She was diagnosed with influenza A. She has finished influenza A treatment while in the hospital. She was having COPD exacerbation. She was treated with Solu-Medrol, DuoNeb, Pulmicort, and Dulera while in the hospital. She was also given empiric antibiotic therapy with levofloxacin. Over next few days, the patient's condition improved to baseline level. While in the hospital, she had abnormal electrolytes that was corrected. I have seen and examined the patient at bedside today. All review of systems reviewed with her and negative. Now, the patient is currently back to her baseline status and she expressed her wish to go home. PHYSICAL EXAMINATION: VITAL SIGNS: Currently, temperature 97.8, pulse 75, respiratory rate 20, saturation 99% on 2 L, blood pressure 130/76, weight 129 pounds. GENERAL: The patient is currently alert and awake, no obvious acute distress. HEENT: Head; normocephalic, atraumatic. Eyes; pupils round, reactive to light. Extraocular muscle intact. ENT; oropharynx within normal limits. Moist mucous membranes. No oral lesion. No pharyngeal erythema. No exudate. NECK: Supple. No JVD. No thyromegaly. No carotid bruit. No jugular venous distention. LUNGS: Grossly clear to auscultation without any rhonchi or rales. CARDIAC: S1 and S2 regular without any murmur. ABDOMEN: Soft and benign. EXTREMITIES: No edema. NEUROLOGIC: Nonfocal examination. All new medication prescription sent to her pharmacy. Job ID: [id number]
--- NOTE | 2018-12-14 11:35 | PDOC.PN ---
- Subjective Encounter Start Date: 12/14/18 Encounter Start Time: 10:15 Patient seen and examined. No new complaints. No overnight events - Objective Resuscitation Status - Order Detail: 12/10/18 06:52 Resuscitation Status Routine Resuscitation Status: FULL: Full Resuscitation MAR Reviewed: Yes Vital Signs & Weight: Vital Signs (12 hours) Temp Pulse Resp BP BP Pulse Ox 12/14/18 10:48 90 20 91 L 12/14/18 09:15 99 12/14/18 08:00 97.8 F 75 20 130/76 99 12/14/18 07:39 82 16 94 L 12/14/18 04:00 97.8 F 82 20 131/79 84 L 12/14/18 02:38 83 14 94 L 12/14/18 00:00 97.9 F 83 20 115/69 91 L Weight Weight 129 lb 9.6 oz I&O: 12/13/18 12/14/18 12/15/18 06:59 06:59 06:59 Intake Total 511.0 Balance 511.0 Result Diagrams: 12/13/18 05:27 12/13/18 05:27 Phys Exam - Physical Examination Constitutional: NAD HEENT: PERRLA, moist MMs, sclera anicteric Neck: no JVD, supple Respiratory: no wheezing, no rales, no rhonchi Cardiovascular: RRR, no significant murmur, no rub Gastrointestinal: soft, non-tender, no distention, positive bowel sounds Musculoskeletal: no edema, pulses present Neurological: non-focal, normal sensation, moves all 4 limbs Psychiatric: normal affect, A&O x 3 Skin: no rash, normal turgor Dx/Plan (1) COPD exacerbation Code(s): J44.1 - CHRONIC OBSTRUCTIVE PULMONARY DISEASE W (ACUTE) EXACERBATION Status: Acute (2) Lactic acidosis Code(s): E87.2 - ACIDOSIS Status: Acute (3) Hypokalemia Code(s): E87.6 - HYPOKALEMIA Status: Acute (4) Hypophosphatemia Code(s): E83.39 - OTHER DISORDERS OF PHOSPHORUS METABOLISM Status: Acute (5) Tobacco use Code(s): Z72.0 - TOBACCO USE Status: Chronic (6) Hypertension Code(s): I10 - ESSENTIAL (PRIMARY) HYPERTENSION Status: Chronic (7) Anemia, normocytic normochromic Code(s): D64.9 - ANEMIA, UNSPECIFIED Status: Chronic (8) Chronic respiratory failure with hypoxia, on home oxygen therapy Code(s): J96.11 - CHRONIC RESPIRATORY FAILURE WITH HYPOXIA; Z99.81 - DEPENDENCE ON SUPPLEMENTAL OXYGEN Status: Chronic (9) Influenza A Code(s): J10.1 - FLU DUE TO OTH IDENT INFLUENZA VIRUS W OTH RESP MANIFEST Status: Acute - Plan cont current plan of care, continue antibiotics, respiratory therapy * medication reviewed as below * symptomatic treatment * see discharge kaushik. Review of Systems - Review of Systems ENT: negative: Ear Pain, Ear Discharge, Nose Pain, Nose Discharge, Nose Congestion, Mouth Pain, Mouth Swelling, Throat Pain, Throat Swelling, Other Respiratory: negative: Cough, Dry, Shortness of Breath, Hemoptysis, SOB with Excertion, Pleuritic Pain, Sputum, Wheezing Cardiovascular: negative: chest pain, palpitations, orthopnea, paroxysmal nocturnal dyspnea, edema, light headedness, other Gastrointestinal: negative: Nausea, Vomiting, Abdominal Pain, Diarrhea, Constipation, Melena, Hematochezia, Other Genitourinary: negative: Dysuria, Frequency, Incontinence, Hematuria, Retention , Other Musculoskeletal: negative: Neck Pain, Shoulder Pain, Arm Pain, Back Pain, Hand Pain, Leg Pain, Foot Pain, Other - Medications/Allergies Allergies/Adverse Reactions: Allergies Allergy/AdvReac Type Severity Reaction Status Date / Time Latex, Natural Rubber Allergy Mild Verified 12/11/18 17:42 adhesive tape Allergy Rash Verified 01/17/18 13:41 cephalexin monohydrate Allergy Verified 08/27/15 12:06 [From Keflex] codeine Allergy Verified 08/27/15 12:06 iodine Allergy Verified 08/27/15 12:06 phenytoin sodium Allergy Verified 01/17/18 13:41 [From Dilantin] rofecoxib [From Vioxx] Allergy Verified 08/27/15 12:06 ticlopidine [From Ticlid] Allergy Verified 12/11/18 17:41 tramadol Allergy Verified 08/27/15 12:06 diazepam [From Valium] AdvReac Verified 01/17/18 13:41 hydrocodone bitartrate AdvReac Verified 01/17/18 13:41 [From Vicodin] phenytoin sodium extended AdvReac Verified 01/17/18 13:41 [From Dilantin] Medications: Current Medications Acetaminophen (Tylenol) 650 mg PO Q4H PRN PRN Reason: Headache/Fever/Mild Pain (1-3) Albuterol/Ipratropium (Duoneb) 3 ml NEB [id number] [facility] Last Admin: 12/14/18 10:48 Dose: 3 ml Alprazolam (Xanax) 0.25 mg PO TID PRN PRN Reason: Anxiety Last Admin: 12/13/18 21:38 Dose: 0.25 mg Artificial Tears (Tears Naturale) 2 drop EA EYE PRN PRN PRN Reason: Dry Eyes Aspirin (Aspirin Chewable) 81 mg PO DAILY [facility] Last Admin: 12/14/18 09:15 Dose: 81 mg Bisacodyl (Dulcolax) 10 mg [place] DAILYPRN PRN PRN Reason: Constipation Calcium Carbonate (Tums) 1,000 mg PO Q4H PRN PRN Reason: Heartburn or Indigestion Enoxaparin Sodium (Lovenox) 40 mg SC 0900 [facility] Last Admin: 12/14/18 09:14 Dose: 40 mg Guaifenesin (Mucinex) 600 mg PO Q12HR [facility] Last Admin: 12/14/18 09:15 Dose: 600 mg Guaifenesin (Robitussin Sf) 200 mg PO Q4H PRN PRN Reason: Cough Hydralazine HCl (Apresoline) 10 mg SLOW IVP Q4H PRN PRN Reason: SBP > 180 and HR < 70 Levofloxacin (Levaquin) 750 mg PO 0600 [facility] Last Admin: 12/14/18 06:27 Dose: 750 mg Loperamide HCl (Imodium) 2 mg PO PRN PRN PRN Reason: Diarrhea/Loose Stools Last Admin: 12/10/18 10:30 Dose: 2 mg Loratadine (Claritin) 10 mg PO DAILYPRN PRN PRN Reason: Sinus Symptoms Methylprednisolone Sodium Succinate (Solu-Medrol) 20 mg IVP Q6HR [facility] Last Admin: 12/14/18 06:26 Dose: 20 mg Metoclopramide HCl (Reglan) 5 mg PO Q4H PRN PRN Reason: Nausea Mineral Oil/White Petrolatum (Eucerin Cream) 0 gm TOP BIDPRN PRN PRN Reason: Dry Skin Miscellaneous Medication (Phos-Nak) 1 pkt PO BID [facility] Last Admin: 12/14/18 09:14 Dose: 1 pkt Mometasone Furoate/Formoterol Fumar (Dulera 200 Mcg/5 Mcg Inhaler) 2 puff INH BID-RT [facility] Last Admin: 12/14/18 07:39 Dose: 2 puff Nicotine (Nicoderm Patch) 21 mg TD DAILY [facility] Last Admin: 12/14/18 09:14 Dose: 21 mg Oseltamivir Phosphate (Tamiflu) 75 mg PO BID [facility] Stop: 12/14/18 21:01 Last Admin: 12/14/18 09:15 Dose: 75 mg Pantoprazole Sodium (Protonix) 40 mg PO DAILY [facility] Last Admin: 12/14/18 09:15 Dose: 40 mg Saccharomyces Boulardii (Florastor) 250 mg PO DAILY [facility] Last Admin: 12/14/18 09:15 Dose: 250 mg Senna/Docusate Sodium (Senokot S) 2 tab PO BID PRN PRN Reason: Constipation Sodium Chloride ([place] Nasal [place] 0.65%) 0 ml EA NARE QIDPRN PRN PRN Reason: Nasal Congestion Sodium Chloride (Flush - Normal Saline) 10 ml IVF Q12HR [facility] Last Admin: 12/14/18 09:15 Dose: 10 ml Sodium Chloride (Flush - Normal Saline) 10 ml IVF PRN PRN PRN Reason: Saline Flush Last Admin: 12/13/18 05:13 Dose: 10 ml Throat Lozenges (Cepastat Lozenges) 1 chiara PO Q2H PRN PRN Reason: Sore Throat Zolpidem Tartrate (Ambien) 5 mg PO HSPRN PRN PRN Reason: Insomnia Last Admin: 12/13/18 00:23 Dose: 5 mg
[2018-12-14 12:51] VITALS: BP 129/70; TEMP 98
== END 2018-12-14 12:30 | disposition home or self-care (01) | DRG 871 ==
LOC: ERS 20:07 → SJJU 23:35
PROVIDERS: ADMIT Hospitalist; ATTEND Hospitalist
DX: A41.9 Sepsis, unspecified organism (principal); J18.9 Pneumonia, unspecified organism; J44.0 Chronic obstructive pulmonary disease with (acute) lower respiratory infection; J44.1 Chronic obstructive pulmonary disease with (acute) exacerbation; E87.2 Acidosis; J96.11 Chronic respiratory failure with hypoxia; J09.X2 Influenza due to identified novel influenza A virus with other respiratory manifestations; F32.9 Major depressive disorder, single episode, unspecified; I25.10 Atherosclerotic heart disease of native coronary artery without angina pectoris; I10 Essential (primary) hypertension; J20.9 Acute bronchitis, unspecified; K21.9 Gastro-esophageal reflux disease without esophagitis; F17.210 Nicotine dependence, cigarettes, uncomplicated; E87.6 Hypokalemia; E83.39 Other disorders of phosphorus metabolism; D64.9 Anemia, unspecified; Z99.81 Dependence on supplemental oxygen
CPT/HCPCS: 36415; 71275; 80048; 80053; 83605; 83735; 84100; 84484; 85025; 90471; 90670; 94640; 94664; 96365; 96366; 96375; G0009; J1650; J1956; J2920; J3370; J7050; J7620

== ENCOUNTER 2019-08-11 19:57 | Observation (INO) | payer MEDICARE ==
[2019-08-11] MEDS ORDERED: Ondansetron PF 4 MG/2 ML Vial SLOW IVP PRN (21:14)
[2019-08-11] MEDS ORDERED: Acetaminophen 325 MG TAB PO PRN (21:14)
[2019-08-11] MEDS ORDERED: Ondansetron ODT 8 MG TAB PO PRN (21:15)
[2019-08-11] MEDS ORDERED: Meclizine HCl 25 MG TAB PO PRN (21:15)
[2019-08-12] MEDS: Nicotine 14 MG PATCH TOP SCH (00:55)
[2019-08-12] MEDS ORDERED: Lorazepam 0.5 MG TAB PO SCH (01:00)
[2019-08-12 05:25] LABS: #Eosinphils 0.1 thou/uL (0.0-0.7); #Lymphocytes 1.7 thou/uL (1.20-3.40); #Monocytes 0.5 thou/uL (0.11-0.59); #Neutrophils 5.7 thou/uL (1.40-6.50); %Basophils 0.3 % (0.0-1.0); %Eosinophils 0.9 % (0.0-10.0); %Monocytes 6.6 % (0.0-10.0); %Neutrophils 71.2 % (42.0-75.0); Hemoglobin 12.7 g/dL (12.0-16.0); Mean Corpuscular HGB CONC 34.4 g/dL (32.0-36.0); Mean Corpuscular Hemoglobin 30.5 pg (27.0-31.0); Mean Corpuscular Volume 88.5 fL (78.0-98.0); Platelet Count 146 thou/uL (130-400); RBC Distribution Width 12.2 % (11.5-14.5); Red Blood Cell (RBC) Count 4.17 mill/uL (4.20-5.40)
[2019-08-12 05:27] LABS: Anion Gap 11 mmol/L (10-20); BUN (Urea Nitrogen) 10 mg/dL (9.8-20.1); Calc. Creatinine Clearance 41 mL/min (70-130); Calcium 9.3 mg/dL (7.8-10.44); Carbon Dioxide 26 mmol/L (23-31); Cardiac Risk 4.9 (Less than 4.5); Chloride 106 mmol/L (98-107); Cholesterol 167 mg/dl (< 200 Desired); Estimated GFR-MDRD 57; Glucose 99 mg/dL (83-110); HDL Cholesterol 34 mg/dL (>60 Neg Risk); LDL Cholesterol, Calculated 101 mg/dL; Potassium 3.4 mmol/L (3.5-5.1); Sodium 140 mmol/L (136-145); Triglycerides 160 mg/dL (Less than 150)
[2019-08-12 06:38] LABS: Troponin I 0.037 ng/mL (< 0.028)
--- NOTE | 2019-08-12 06:45 | HP ---
CODE STATUS: Full code. PRIMARY CARE DOCTOR: Dr. Hilary Saleh. CHIEF COMPLAINT: Dizziness. HISTORY OF PRESENT ILLNESS: This is an 79-year-old female patient with past medical history of IBS, hypertension, COPD, coronary artery disease, dementia, came to the hospital after having [id number] gradually worsening vertigo. The patient reported it become so severe that she has been unable to function properly and having some difficulty walking. No clear triggers, no alleviating factors. REVIEW OF SYSTEMS: All systems reviewed were negative except for the findings mentioned above. PAST MEDICAL HISTORY: As mentioned in HPI. PAST SURGICAL HISTORY: Tonsillectomy, tubal ligation, and cholecystectomy. PSYCHIATRIC HISTORY: Includes anxiety and depression. SOCIAL HISTORY: Lives at home with family. Use tobacco, smokes cigarettes daily. The patient smokes one pack per day. No alcohol. FAMILY HISTORY: Hypertension. KNOWN ALLERGIES: Adhesive tape, cephalexin, codeine, diazepam, Dilantin, hydrocodone, iodine, Keflex, latex, Ticlid, ticlopidine, tramadol, Valium, oral Vicodin, and Vioxx. REPORTED MEDICATIONS: 1. Buspirone. 2. Trazodone. 3. Amlodipine. 4. Mirtazapine. 5. Proventil. 6. Symbicort. 7. Albuterol. PHYSICAL EXAMINATION: VITAL SIGNS: On presentation, blood pressure 155/72 with heart rate 93, respiratory rate was 22, temperature 98, pain was 0/10, oxygen saturation was 92% on room air. GENERAL APPEARANCE: The patient is alert, oriented, no acute distress. HEENT: Eyes, normal conjunctivae. Moist oral mucosa. Anicteric. No JVD. RESPIRATORY: Bilateral air entry. No rales. No wheezes. Symmetric expansion. CARDIOVASCULAR: Normal rate and regular rhythm. No murmurs. No gallop. No edema. ABDOMEN: Soft. Normal bowel sounds. MUSCULOSKELETAL: Baseline range of motion and strength. SKIN: Warm and intact. No pallor. No rash. No redness. Capillary refill seems to be intact. NEURO: No evidence of any new focal weakness. Cranial nerve seems to be intact . PSYCH: The patient is in good mood. No anxiety. Optimal judgment. DIAGNOSTIC STUDIES: EKG was done. The patient has a normal sinus rhythm with a rate of [address]-segment normal. T-waves normal. [place], left axis. Radiology was done. The patient has a head CT that is negative without contrast. Chest x-ray was negative. LABORATORY DATA: Reviewed. The patient has a normal CBC. Normal chemistry except for hypokalemia, potassium 3.4. Troponin 0.041. Triglycerides 116. Urine was done and was positive with white count 21 to 50 ASSESSMENT AND PLAN: The patient will be placed in the hospital with following medical problems. 1. Vertigo, unclear etiology. We will rule out stroke. We will do a stroke protocol, and we will monitor on tele. Further treatment depending on results. 2. Urinary tract infection. The patient has a positive urinalysis. We will treat with antibiotics. The patient received Levaquin in the ER. We will continue for now. 3. Mildly elevated troponin. Unclear etiology, likely acute coronary syndrome. We will trend, we will monitor on tele. We will treat depending on results. 4. Hypokalemia with potassium 3.4. This is mild. We will replace electrolytes as needed. 5. Deep venous thrombosis prophylaxis. Job ID: [id number]
--- NOTE | 2019-08-12 09:05 | ULT ---
BILATERAL CAROTID DUPLEX ULTRASOUND: Date: 08/12/19 HISTORY: Stroke. FINDINGS: Real-time color Doppler evaluation of the right and left carotid systems shows prominent plaque forma tion bilaterally. Changes are probably slightly more pronounced at the origin of the right internal c arotid artery. On the right side, peak systolic velocities of the common carotid were 63 cm/second. Internal caroti d velocities were 151 cm/second and external carotid velocities were 111 cm/second. On the left side, peak systolic velocities of the common carotid were 60 cm/second. Internal carotid velocities were 126 cm/second and external carotid velocities were 125 cm/second. Vertebral flow was antegrade bilaterally. IMPRESSION: 1. Findings which suggest 50-69% narrowing of the right internal carotid artery near its origin by N ASCET criteria. This is probably on the lower end of this range. 2. The peak systolic velocities of the left internal carotid artery are at the junction of less than 50% to the range of 50-69% by NASCET criteria. The diastolic velocities and ratios would suggest les s than 50% narrowing. POS: TPC
--- NOTE | 2019-08-12 09:42 | MRI ---
BRAIN MRI WITHOUT IV CONTRAST: HISTORY: TIA, weakness, dizziness. COMPARISON: 08/11/2019 CT, 02/08/2016 MRI. FINDINGS: Motion artifact on numerous sequences lowers the sensitivity of this study. Marked atrophy and chron ic white matter ischemic change. No evidence for acute infarct. No mass or hemorrhage. Left maxill ana luisa sinus mucosal disease. Expected flow voids are present. IMPRESSION: Atrophy and chronic white matter ischemic change. No evidence for acute infarct. Left maxillary sin us mucosal disease. POS: OFF
[2019-08-12] MEDS: Enoxaparin Sodium 40 MG/0.4 ML SYRINGE SC SCH (10:11)
[2019-08-12] MEDS: Aspirin 325 mg Enteric Coated Tablet PO SCH (10:11)
--- NOTE | 2019-08-12 16:30 | PDOC.HOSPP ---
- Subjective Subjective: Feels better. Dizziness has resolved. Feels generally weak. - Objective Vital Signs & Weight: Vital Signs (12 hours) Temp Pulse Pulse Pulse Resp BP BP 08/12/19 15:56 98.3 F 75 16 08/12/19 12:07 97.6 F 78 16 08/12/19 11:15 76 80 142/85 H 145/85 H 08/12/19 10:10 08/12/19 09:10 08/12/19 08:00 98.2 F 69 16 BP Pulse Ox 08/12/19 15:56 174/89 H 92 L 08/12/19 12:07 145/85 H 97 08/12/19 11:15 08/12/19 10:10 96 08/12/19 09:10 92 L 08/12/19 08:00 149/70 H 90 L Weight Admit Weight 121 lb 4.8 oz Weight 121 lb 4.8 oz I&O: 08/11/19 08/12/19 08/13/19 06:59 06:59 06:59 Intake Total 100 680 Balance 100 680 Result Diagrams: 08/12/19 04:40 08/12/19 04:40 Hospitalist ROS - Medication Medications: Active Medications Generic Name Dose Route Start Last Admin Trade Name Freq PRN Reason Stop Dose Admin Aspirin 325 mg 08/12/19 09:00 08/12/19 10:11 Ecotrin PO 325 mg DAILY [facility] Administration Enoxaparin Sodium 40 mg 08/12/19 09:00 08/12/19 10:11 Lovenox SC 40 mg 0900 [facility] Administration Lorazepam 0.5 mg 08/12/19 01:00 08/12/19 07:55 Ativan PO 0.5 mg WILLCALL KRYSTYNA Administration Nicotine 14 mg 08/12/19 01:00 08/12/19 00:55 Nicoderm Patch TOP 14 mg Q24HR [facility] Administration - Exam General Appearance: NAD, awake alert Heart: RRR, no murmur, no gallops, no rubs, normal peripheral pulses Respiratory: CTAB (Diminished.), no wheezes, no rales, no ronchi, normal chest expansion, no tachypnea, normal percussion Gastrointestinal: soft, non-tender, non-distended, normal bowel sounds, no palpable masses, no hepatomegaly, no splenomegaly, no bruit Extremities: no cyanosis, no clubbing, no edema Skin: normal turgor Musculoskeletal: generalized weakness Psychiatric: normal affect, normal behavior Hosp A/P (1) Vertigo Code(s): R42 - DIZZINESS AND GIDDINESS Status: Acute (2) Hypertension Code(s): I10 - ESSENTIAL (PRIMARY) HYPERTENSION Status: Acute (3) Chronic respiratory failure with hypoxia, on home oxygen therapy Code(s): J96.11 - CHRONIC RESPIRATORY FAILURE WITH HYPOXIA; Z99.81 - DEPENDENCE ON SUPPLEMENTAL OXYGEN Status: Chronic (4) Hypertension Code(s): I10 - ESSENTIAL (PRIMARY) HYPERTENSION Status: Chronic (5) Elevated troponin Code(s): R74.8 - ABNORMAL LEVELS OF OTHER SERUM ENZYMES Status: Acute (6) Hypokalemia Code(s): E87.6 - HYPOKALEMIA Status: Acute - Plan Patient has had an elevated trop in the past. Nothing to suggest this is ischemia related. Potassium is better. Vertigo resolved. MRI with only chronic changes. Nothing acute. Carotid doppler with no occlusive disease. Will see if she qualifies for rehab given her overall weakness. PT consult.
[2019-08-12] MEDS ORDERED: Acetaminophen 325 MG TAB PO PRN (17:38)
[2019-08-12] MEDS: Mometasone/Formoterol 120 PUFF INHALER INH SCH (18:13)
[2019-08-12] MEDS ORDERED: Atorvastatin Calcium 40 MG TAB PO SCH (21:00)
[2019-08-12] MEDS ORDERED: BUDESONIDE FORMOTEROL INH SCH (21:00)
[2019-08-12] MEDS ORDERED: Mirtazapine 15 MG TAB PO SCH (21:00)
[2019-08-12] MEDS: busPIRone HCl 10 MG TAB PO SCH (21:06)
[2019-08-13] MEDS: Nicotine 14 MG PATCH TOP SCH (02:32)
[2019-08-13 04:37] LABS: #Eosinphils 0.1 thou/uL (0.0-0.7); #Lymphocytes 1.9 thou/uL (1.20-3.40); #Monocytes 0.5 thou/uL (0.11-0.59); #Neutrophils 3.1 thou/uL (1.40-6.50); %Basophils 0.5 % (0.0-1.0); %Eosinophils 1.2 % (0.0-10.0); %Lymphocytes 33.7 % (21.0-51.0); %Monocytes 8.5 % (0.0-10.0); %Neutrophils 56.1 % (42.0-75.0); Hemoglobin 12.6 g/dL (12.0-16.0); Mean Corpuscular HGB CONC 34.6 g/dL (32.0-36.0); Mean Corpuscular Hemoglobin 30.7 pg (27.0-31.0); Mean Platelet Volume 7.6 fL (7.4-10.4); Platelet Count 142 thou/uL (130-400); RBC Distribution Width 12.1 % (11.5-14.5); Red Blood Cell (RBC) Count 4.09 mill/uL (4.20-5.40); White Blood Cell (WBC) Count 5.5 thou/uL (4.8-10.8)
[2019-08-13 04:58] LABS: Anion Gap 13 mmol/L (10-20); BUN (Urea Nitrogen) 15 mg/dL (9.8-20.1); Calc. Creatinine Clearance 43 mL/min (70-130); Calcium 9.9 mg/dL (7.8-10.44); Carbon Dioxide 27 mmol/L (23-31); Chloride 104 mmol/L (98-107); Estimated GFR-MDRD 61; Glucose 106 mg/dL (83-110); Potassium 4.2 mmol/L (3.5-5.1); Sodium 140 mmol/L (136-145)
[2019-08-13 07:53] VITALS: BMI 21.4
[2019-08-13 08:04] VITALS: BP 173/71; TEMP 97.7
[2019-08-13] MEDS: Mometasone/Formoterol 120 PUFF INHALER INH SCH (08:09)
[2019-08-13] MEDS ORDERED: Amlodipine 10 MG TAB PO SCH (09:00)
[2019-08-13] MEDS ORDERED: traZODone HCl 50 MG TAB PO SCH (09:00)
[2019-08-13] MEDS: busPIRone HCl 10 MG TAB PO SCH (10:20)
[2019-08-13] MEDS: Enoxaparin Sodium 40 MG/0.4 ML SYRINGE SC SCH (10:21)
[2019-08-13] MEDS: Aspirin 325 mg Enteric Coated Tablet PO SCH (10:21)
--- NOTE | 2019-08-14 10:48 | DIS ---
DATE OF ADMISSION: 08/11/2019 DATE OF DISCHARGE: 08/13/2019 DISCHARGE DIAGNOSES: 1. Vertigo. 2. Hypertension. 3. Chronic respiratory failure with hypoxia, on home oxygen. 4. Hypertension. 5. Elevated troponins. 6. Hypokalemia. HISTORY OF PRESENT ILLNESS: This patient is an 79-year-old female, who presented via the emergency department with a report of vertigo. She reported that it had not resolved when she was motionless. There was some concern that could potentially be stroke. She had no workup, which included a CT of the head, which was negative. Chest x-ray was negative. Labs were largely unremarkable other than urine did show elevated WBC consistent with urinary tract infection. She was admitted, was placed in observation with those symptoms. She had a history of elevated troponins, and troponins at this time were consistent with her baseline and not considered out of the norm for her. She had carotid Dopplers, which revealed only some nonocclusive disease on the right. She had an MRI of the brain, which showed atrophy and chronic white matter ischemic changes and an echocardiogram which revealed ejection fraction of 55% to 60% with some suggestion of diastolic dysfunction. She was treated with antibiotics for the evident urinary tract infection with Levaquin. The patient reported her vertigo had fully resolved; however, she reported significant generalized weakness. She was subsequently evaluated by therapy and felt to be appropriate for skilled rehab placement for rehab. With that, the patient was seen by Case Management and evaluated for swing bed in [place]. She was accepted there and ultimately that is where she will be transferred. PHYSICAL EXAMINATION: VITAL SIGNS: At the time of discharge; temperature 97.1, pulse 72, respirations 14, O2 saturation 98% on 2 L nasal cannula, and blood pressure 135/60. GENERAL: She is awake, alert, oriented, pleasant, and cooperative. HEART: Regular rate and rhythm. LUNGS: Clear. ABDOMEN: Benign. EXTREMITIES: Showed no edema. NEUROLOGIC: She appeared to move all extremities normally. She had normal cranial nerve function and appeared to have normal cognition. DISPOSITION: The patient is discharged to [facility] swing bed. ACTIVITY: As tolerated. She will be on a heart healthy diet. She will have OT , PT and remained on oxygen. MEDICATIONS: She will be on: 1. Aspirin 81 mg daily. 2. Atorvastatin 40 mg at bedtime. 3. Levofloxacin 250 mg daily. She will continue: 1. Amlodipine. 2. Mirtazapine. 3. Symbicort. 4. BuSpar. 5. DuoNeb. 6. Trazodone. 7. Acetaminophen. FOLLOWUP: She will have followup in [place] with Dr. Saleh and she can return to the hospital anytime she feels the need. Job ID: [id number]
== END 2019-08-13 11:31 | disposition swing bed (61) ==
LOC: 2SE 20:57 → INTOOBSV 20:57
PROVIDERS: ADMIT Hospitalist; ATTEND Hospitalist
DX: R42 Dizziness and giddiness (principal); I10 Essential (primary) hypertension; J96.11 Chronic respiratory failure with hypoxia; R79.89 Other specified abnormal findings of blood chemistry; E87.6 Hypokalemia; N39.0 Urinary tract infection, site not specified; K58.9 Irritable bowel syndrome, unspecified; J44.9 Chronic obstructive pulmonary disease, unspecified; I25.10 Atherosclerotic heart disease of native coronary artery without angina pectoris; F03.90 Unspecified dementia, unspecified severity, without behavioral disturbance, psychotic disturbance, mood disturbance, and anxiety; F41.9 Anxiety disorder, unspecified; F32.9 Major depressive disorder, single episode, unspecified; F17.210 Nicotine dependence, cigarettes, uncomplicated; Z79.51 Long term (current) use of inhaled steroids; Z79.899 Other long term (current) drug therapy; Z88.1 Allergy status to other antibiotic agents; Z88.5 Allergy status to narcotic agent; Z88.8 Allergy status to other drugs, medicaments and biological substances; Z91.040 Latex allergy status; Z91.048 Other nonmedicinal substance allergy status; Z99.81 Dependence on supplemental oxygen
CPT/HCPCS: 70551; 80048 ×2; 80061; 84484; 85025 ×2; 93306; 93880; 94640 ×2; 96372 ×2; 97116; 97139; G0378 ×2; 36415; J1650; J1956